=== PATIENT | female | born 1990 | race Caucasian/White ===

== ENCOUNTER 2019-03-12 08:39 | Day surgery (SDC) | payer BC ==
[~2019-03-12 08:39] MED LIST: Lactated Ringers 1,000 ML IV SCH; Lidocaine 1%/Sod Bicarbonate in NS 8.4% 1 ML Syringe IDERM PRN; Sodium Chloride 0.9% 10 ML Syringe FLUSH PRN
--- NOTE | 2019-03-12 09:15 | PCM.PREANE ---
Preanesthetic Assessment - Procedure Proposed Procedure: tvh with bs - Anesthesia/Transfusion/Family Hx Anesthesia History: Prior Anesthesia Without Reaction Family History of Anesthesia Reaction: No Transfusion History: No Prior Transfusion(s) - Review of Systems General: No Symptoms, Other (feelsn like she gets hot flashes) Pulmonary: No Symptoms Cardiovascular: No Symptoms, Palpitations (anxiety) Gastrointestinal: No Symptoms Neurological: Seizure (2004-last one ) Other: Reports: Sinus Problem (infections), Depression, Anxiety - Physical Assessment NPO Status Date: 03/11/19 NPO Status Time: 23:30 Vital Signs: 97% 97.8 118/70 91 16 Height: 5 ft 5 in Weight: 61.5 kg ASA Class: 2 Mental Status: Alert & Oriented x3 Airway Class: Mallampati = 1 Dentition: Reports: Normal Dentition Thyro-Mental Finger Breadths: 3 Mouth Opening Finger Breadths: 3 ROM/Head Extension: Full Lungs: Clear to Auscultation, Normal Respiratory Effort Cardiovascular: Regular Rate, Regular Rhythm, No Murmurs - Lab Values: Laboratory Last Values WBC 5.25 K/mm3 (3.98-10.04) 03/07/19 10:08 RBC 4.19 M/mm3 (3.98-5.22) 03/07/19 10:08 Hgb 11.8 gm/dl (11.2-15.7) 03/07/19 10:08 Hct 37.3 % (34.1-44.9) 03/07/19 10:08 MCV 89.0 fl (79.4-94.8) 03/07/19 10:08 MCH 28.2 pg (25.6-32.2) 03/07/19 10:08 MCHC 31.6 g/dl (32.2-35.5) L 03/07/19 10:08 RDW Std Deviation 44.3 fL (36.4-46.3) 03/07/19 10:08 Plt Count 403 K/mm3 (182-369) H 03/07/19 10:08 MPV 9.4 fl (9.4-12.3) 03/07/19 10:08 Neut % (Auto) 58.4 % (34.0-71.1) 03/07/19 10:08 Lymph % (Auto) 29.1 % (19.3-51.7) 03/07/19 10:08 [place] % (Auto) 10.1 % (4.7-12.5) 03/07/19 10:08 Eos % (Auto) 1.0 (0.7-5.8) 03/07/19 10:08 Baso % (Auto) 0.8 % (0.1-1.2) 03/07/19 10:08 Neut # (Auto) 3.07 K/mm3 (1.56-6.13) 03/07/19 10:08 Lymph # (Auto) 1.53 K/mm3 (1.18-3.74) 03/07/19 10:08 [place] # (Auto) 0.53 K/mm3 (0.24-0.36) H 03/07/19 10:08 Eos # (Auto) 0.05 K/mm3 (0.04-0.36) 03/07/19 10:08 Baso # (Auto) 0.04 K/mm3 (0.01-0.08) 03/07/19 10:08 Creatinine 0.6 mg/dL (0.55-1.02) 03/07/19 10:08 Est Cr Clr Drug Dosing TNP 03/07/19 10:08 Estimated GFR (MDRD) > 60 mL/min (>60) 03/07/19 10:08 Urine Color Yellow (Yellow) 03/07/19 10:08 Urine Appearance Clear (Clear) 03/07/19 10:08 Urine pH 7.5 (5.0-8.0) 03/07/19 10:08 Ur Specific [place] 1.020 (1.005-1.030) 03/07/19 10:08 Urine Protein Negative (Negative) 03/07/19 10:08 Urine Glucose (UA) Negative (Negative) 03/07/19 10:08 Urine Ketones Negative (Negative) 03/07/19 10:08 Urine Occult Blood 1+ (Negative) H 03/07/19 10:08 Urine Nitrite Negative (Negative) 03/07/19 10:08 Urine Bilirubin Negative (Negative) 03/07/19 10:08 Urine Urobilinogen 0.2 (0.2-1.0) 03/07/19 10:08 Ur Leukocyte Esterase Negative (Negative) 03/07/19 10:08 Urine RBC 0-5 /hpf (0-5) 03/07/19 10:08 Urine WBC 0-5 /hpf (0-5) 03/07/19 10:08 Ur Epithelial Cells 5-10 /hpf (0-5) H 03/07/19 10:08 Urine Bacteria Few /hpf (FEW) 03/07/19 10:08 Urine Mucus Few /hpf (FEW) 03/07/19 10:08 - Allergies Allergies/Adverse Reactions: Allergies Allergy/AdvReac Type Severity Reaction Status Date / Time amoxicillin Allergy Rash Verified 03/11/19 13:46 - Blood Blood Available: Yes - Acknowledgements Anesthesia Type Planned: General Anesthesia Pt an Appropriate Candidate for the Planned Anesthesia: Yes Alternatives and Risks of Anesthesia Discussed w Pt/Guardian: Yes Pt/Guardian Understands and Agrees with Anesthesia Plan: Yes PreAnesthesia Questionnaire HEENT History: Reports: Impaired Vision, Other (See Below) Other HEENT History: wears glasses Cardiovascular History: Reports: None Respiratory History: Reports: None Gastrointestinal History: Reports: None Genitourinary History: Reports: None [employer] History: Reports: , Other (See Below) Other OB/BYN History: abnormal uterine bleeding, Musculoskeletal History: Reports: None Neurological History: Reports: Migraines, Seizure Other Neuro History: last seizure in 2003 Psychiatric History: Reports: Anxiety, Depression, Panic Attack Endocrine/Metabolic History: Reports: None Hematologic History: Reports: None Immunologic History: Reports: None Oncologic (Cancer) History: Reports: None Dermatologic History: Reports: None - Past Surgical History Head Surgeries/Procedures: Reports: None HEENT Surgical History: Reports: Oral Surgery, Tonsillectomy Cardiovascular Surgical History: Reports: None Respiratory Surgical History: Reports: None GI Surgical History: Reports: None Female Surgical History: Reports: None Male Surgical History: Reports: None Endocrine Surgical History: Reports: None Neurological Surgical History: Reports: None Musculoskeletal Surgical History: Reports: None Oncologic Surgical History: Reports: None Dermatological Surgical History: Reports: None - SUBSTANCE USE Smoking Status *Q: Current Every Day Smoker Tobacco Use Within Last Twelve Months: Cigarettes Second Hand Smoke Exposure: Yes Days Per Week of Alcohol Use: 7 Number of Drinks Per Day: 3 Total Drinks Per Week: 21 Recreational Drug Use History: No - HOME MEDS Home Medications: Home Meds Biotin 1 mg PO DAILY 03/11/19 [History] Cyanocobalamin (Vitamin B-12) [Vitamin B-12] 1,000 mcg PO DAILY 03/11/19 [ History] Docusate Sodium [Stool Softener] 100 mg PO BID 03/11/19 [History] - CURRENT (IN HOUSE) MEDS Current Meds: Current Medications Lactated Ringer's (Ringers, Lactated) 1,000 mls @ 125 mls/hr IV ASDIRECTED DRE Stop: 03/12/19 23:00 Lidocaine/Sodium Bicarbonate (Buffered Lidocaine 1% In Ns 8.4%) 0.25 ml IDERM ONETIME PRN PRN Reason: Prior to IV Start Stop: 03/12/19 18:00 Sodium Chloride (Saline Flush) 10 ml FLUSH ASDIRECTED PRN PRN Reason: Keep Vein Open Stop: 03/12/19 18:00
[2019-03-12] MEDS ORDERED: Lactated Ringers 1,000 ML ONE (09:20)
[2019-03-12] MEDS ORDERED: Lidocaine 1% 4 ML ONE ×2 (09:20→09:21)
[2019-03-12] MEDS ORDERED: Rocuronium 50 MG/5 ML Vial ONE (09:20)
[2019-03-12] MEDS ORDERED: Ondansetron 4 MG/2 ML SDV ONE (09:20)
[2019-03-12] MEDS ORDERED: Propofol 200 MG/20 ML SDV ONE (09:20)
[2019-03-12] MEDS ORDERED: ceFAZolin 1 GM Vial ONE (09:20)
[2019-03-12] MEDS ORDERED: Dexamethasone 4 MG/ML 5 ML MDV ONE (09:21)
[2019-03-12] MEDS ORDERED: fentaNYL 250 MCG/5 ML SDV ONE (09:21)
[2019-03-12] MEDS ORDERED: Midazolam 1 MG/ML 2 ML SDV ONE (09:21)
[2019-03-12] MEDS ORDERED: Ketorolac 15 MG/ML SDV ONE (09:21)
[2019-03-12] MEDS ORDERED: Lidocaine 1% with EPINEPHrine 1:100,000 20 ML MDV ONE (10:28)
[2019-03-12] MEDS ORDERED: Sodium Chloride 0.9% 50 ML SDV ONE (10:29)
[2019-03-12] MEDS ORDERED: HYDROmorphone 0.5 MG/0.5 ML Syringe ONE (11:04)
[2019-03-12] MEDS ORDERED: fentaNYL 100 MCG/2 ML SDV IVPUSH PRN (11:14)
[2019-03-12] MEDS ORDERED: HYDROmorphone 0.5 MG/0.5 ML Syringe IVPUSH PRN (11:14)
[2019-03-12] MEDS ORDERED: Ondansetron 4 MG/2 ML SDV IVPUSH PRN ×2 (11:14→11:37)
[2019-03-12] MEDS ORDERED: Neostigmine Methylsulfate 1 MG/ML 5 ML Syringe ONE (11:27)
[2019-03-12] MEDS ORDERED: Acetaminophen/oxyCODONE 325-5 MG Tab PO PRN (11:37)
--- NOTE | 2019-03-12 11:44 | PCM.OPNOTE ---
- General Post-Op/Procedure Note Date of Surgery/Procedure: 03/12/19 Operative Procedure(s): Total vaginal hysterectomy with bilateral salpingectomy Findings: Uterus tubes and ovaries appeared to be normal. Ovaries were left in place per patient desire Pre Op Diagnosis: 1. Abnormal uterine bleeding. 2. Pelvic congestion syndrome Post-Op Diagnosis: Same Anesthesia Technique: General ET Tube Other Anesthesia Type: Lidocaine quarter percent with [id number] mL total Primary Surgeon: Asher Kennedy Secondary Surgeon: Eligio Cowart Anesthesia Provider: Antonia Geiger Role of [place]: Assistance, retraction, patient safety, quality of care Pathology: Uterus and bilateral fallopian tubes in one specimen container Fluid Replacement, Intraop: 1,200 EBL in mLs: 50 Complications: None Condition: Good Free Text/Narrative:: Surgery duration: 23 minutes Procedure: The patient was placed in supine position on the operating table. General endotracheal anesthesia was accomplished. After positioning, and adequate prep and drape, the procedure was then performed. Sterile speculum was placed in the vagina and cervix was visualized. Cervix was injected with lidocaine quarter percent with epinephrine-20 mL used. A full circumference incision was made in the cervical epithelium. The bladder was pushed well back off cervix. Posterior cul-de-sac was then entered sharply without problems. Left uterosacral was crossclamped with a Enseal vessel closure system. The left uterosacral and then the right uterosacral ligament pedicles were developed using the Enseal system. The anterior cul-de-sac was then entered without problems and the uterine vasculature, cardinal ligament and broad ligament then developed using Enseal vessel closure system. The uterus was inverted at this time and upper broad ligament fallopian tube pedicles were crossclamped with Darby clamps. Specimen was totally removed. Both these pedicles were then secured with Enseal vessel closure system. Left and right fallopian tube was normal in appearance. Using Enseal vessel closure system each of the tubes was then removed and sent with the specimen. The patient was found to be hemostatically intact at this time. Vaginal cuff was sutured for hemostatic reasons with a running locked suture of 0 Monocryl from the 2 o'clock position to the 10 o'clock position posteriorly. Vaginal cuff was then closed from right to left side with a running locked suture of 0 Monocryl. Patient was returned to supine position and awakened from general endotracheal anesthesia. She tolerated the procedure and left the operating room in satisfactory condition.
[2019-03-12] MEDS ORDERED: Ketorolac 30 MG/ML SDV IVPUSH SCH (11:45)
--- NOTE | 2019-03-12 11:52 | PCM.POSTAN ---
POST ANESTHESIA ASSESSMENT - MENTAL STATUS Mental Status: Alert, Oriented - VITAL SIGNS Vital Signs: Last Vital Signs Temp 36.6 C 03/12/19 09:00 Pulse 91 03/12/19 09:00 Resp 16 03/12/19 09:00 BP 118/70 03/12/19 09:00 Pulse Ox 96 03/12/19 09:00 - RESPIRATORY Respiratory Status: Respiratory Rate WNL, Airway Patent, O2 Saturation Stable, Supplemental Oxygen - CARDIOVASCULAR CV Status: Pulse Rate WNL, Blood Pressure Stable - GASTROINTESTINAL GI Status: No Symptoms - PAIN Pain Score: 0 - POST OP HYDRATION Hydration Status: Adequate & Stable
--- NOTE | 2019-03-12 13:35 | PCM48HPAN ---
Post Anesthesia Note - EVALUATION WITHIN 48HRS OF ANESTHETIC Vital Signs in Normal Range: Yes Patient Participated in Evaluation: Yes Respiratory Function Stable: Yes Airway Patent: Yes Cardiovascular Function Stable: Yes Hydration Status Stable: Yes Pain Control Satisfactory: Yes Nausea and Vomiting Control Satisfactory: Yes Mental Status Recovered: Yes Vital Signs: Last Vital Signs Temp 37.2 C 03/12/19 12:36 Pulse 79 03/12/19 13:07 Resp 16 03/12/19 13:07 BP 114/78 03/12/19 13:07 Pulse Ox 96 03/12/19 13:07
== END 2019-03-12 14:15 | disposition home or self-care (01) ==
LOC: JD.SDS 08:39
PROVIDERS: ATTEND Obstetrics & Gynecology
DX: N80.0 Endometriosis of uterus (principal); N87.9 Dysplasia of cervix uteri, unspecified; N94.89 Other specified conditions associated with female genital organs and menstrual cycle; N83.8 Other noninflammatory disorders of ovary, fallopian tube and broad ligament; G43.909 Migraine, unspecified, not intractable, without status migrainosus; Z88.0 Allergy status to penicillin; Z87.891 Personal history of nicotine dependence
CPT/HCPCS: 36415; 58262; 81001; 81025; 82565; 85025; 86850; 86900; 86901; A9270; J0690; J1100; J1170; J1885; J2001; J2250; J2405; J2704; J2710; J3010; J7120; 00944